=== PATIENT | male | born 1995 | race Two or more races ===

== ENCOUNTER 2018-07-22 23:28 | Emergency (ER) | payer SELFPAY ==
--- NOTE | 2018-07-22 23:43 | NUR ---
ED Nurse Note: pt was not on the waiting room when called.
--- NOTE | 2018-07-23 00:14 | NUR ---
ED Nurse Note: pt was not on the waiting room when called for the second time
--- NOTE | 2018-07-23 00:21 | NUR ---
ED Nurse Note: pt was not on the waiting room when called on the third time.
--- NOTE | 2018-07-23 00:32 | Emergency Room Report ---
History of Present Illness General Chief Complaint: To Be Triaged Present Illness HPI This presents with cough and congestion. He checked then but then left before triage. I did not see this patient. Medical Decision Making Diagnostic Impression: Primary Impression: Cough in adult Disposition: LEFT W/OUT BEING SEEN Denver Williamson MD Jul 23, 2018 00:32
== END 2018-07-23 00:32 | disposition left against medical advice (07) ==
LOC: EMR 23:40
DX: R05 Cough (principal); Z53.21 Procedure and treatment not carried out due to patient leaving prior to being seen by health care provider